=== PATIENT | male | born 1935 | race Caucasian/White ===

== ENCOUNTER 2020-07-27 08:12 | Emergency (ER) | payer OTHER, BC ==
[2020-07-27 10:18] LABS: Absolute Lymphocytes (CBC) 1.2 K/uL (0.7-4.9); Basophils % 0.2 % (0-1.3); Hematocrit 38.3 % (39.6-49.0); MPV 7.6 fL (7.6-11.3); RBC Red Blood Cell Count 3.98 M/uL (4.33-5.43)
[2020-07-27 10:24] LABS: Protime INR 0.98
[2020-07-27] MEDS ORDERED: CEFTRIAXONE/SWI 1gm 1 GM/10 ML SYR ONE (10:29)
[2020-07-27] MEDS ORDERED: NA CHLORIDE 0.9% 1,000 ML ONE (10:30)
[2020-07-27 10:36] LABS: Albumin 3.9 g/dL (3.4-5.0); Bilirubin Total 0.5 mg/dL (0.2-1.0); Potassium 4.3 mmol/L (3.5-5.1); Protein, Total 7.3 g/dL (6.4-8.2)
[2020-07-27 10:47] LABS: Urine Blood 3+ (Negative); Urine Glucose Negative (Negative); Urine Protein 2+ (Negative); Urine pH 7.5 (5.0-7.0)
--- NOTE | 2020-07-27 10:48 | RAD REPORT ---
EXAM DESCRIPTION: CT - Abdomen Pelvis W/Wo Contrast - 07/27/2020 10:32 am CLINICAL HISTORY: hematuria COMPARISON: 2013 TECHNIQUE: Computed axial tomography of the abdomen and pelvis was obtained. Unenhanced and enhanced images were taken. 100 cc Isovue 300 was administered intravenously. Images were obtained in arteria l, venous and delayed phases. Coronal reconstruction was performed. Oral contrast given All CT scans are performed using dose optimization technique as appropriate and may include automated exposure control or mA/KV adjustment according to patient size. FINDINGS: 5.7 centimeter cystic mass extends off of the lower pole of the right kidney. It has decre ased size from the prior exam in which measured 8.1 centimeters. It contains small peripheral calcifi cation. Additional smaller cyst right kidney. Mild bladder wall thickening No lymphadenopathy noted. Small hiatal hernia A genitourinary calculus is not seen. Hydronephrosis is not noted. The kidneys demonstrate symmetric and excretion of contrast. Prostatectomy with lymph node dissection. Small hepatic cyst. The Spleen, pancreas and adrenals appear unremarkable. There is no evidence diverticulitis. Multiple gallstones. IMPRESSION: Mild bladder wall thickening may indicate a mild cystitis Cholelithiasis. The gallbladder wall is not thickened.
--- NOTE | 2020-07-27 11:09 | EDPHYS ---
Physician Documentation [facility] Name: Alberto Suárez Jr Age: 84 yrs Sex: Male : 1935 Arrival Date: 07/27/2020 Time: 08:16 Bed 6 Private MD: ED Physician Baltazar Saucedo HPI: 07/27 09:47 This 84 yrs old Male presents to ER via Ambulatory with complaints of Urinary yves Problem - blood. 09:47 The patient presents with urinary symptoms, dysuria, hematuria this morning. Onset: The yves symptoms/episode began/occurred this morning. Modifying factors: The symptoms are alleviated by nothing. Associated signs and symptoms: The patient has no apparent associated signs or symptoms. Severity of symptoms: At their worst the symptoms were mild, moderate, in the emergency department the symptoms are unchanged. The patient has not experienced similar symptoms in the past. Historical: - Allergies: 08:46 No Known Allergies; aa5 - PMHx: 08:46 Prostate CA; Hypertension; aa5 - PSHx: 08:46 Prostate removed; Inguinal hernia; aa5 - Immunization history:: Adult Immunizations unknown. - Social history:: Smoking status: Patient denies any tobacco usage or history of. - Family history:: not pertinent. ROS: 09:47 Constitutional: Negative for fever, chills, and weight loss, Eyes: Negative for injury, yves pain, redness, and discharge, ENT: Negative for injury, pain, and discharge, Neck: Negative for injury, pain, and swelling, Cardiovascular: Negative for chest pain, palpitations, and edema, Respiratory: Negative for shortness of breath, cough, wheezing, and pleuritic chest pain, Abdomen/GI: Negative for abdominal pain, nausea, vomiting, diarrhea, and constipation, Back: Negative for injury and pain, : Negative for injury, bleeding, discharge, and swelling, MS/Extremity: Negative for injury and deformity, Skin: Negative for injury, rash, and discoloration, Neuro: Negative for headache, weakness, numbness, tingling, and seizure, Psych: Negative for depression, anxiety, suicide ideation, homicidal ideation, and hallucinations, Allergy/Immunology: Negative for hives, rash, and allergies, Endocrine: Negative for neck swelling, polydipsia, polyuria, polyphagia, and marked weight changes, Hematologic/Lymphatic: Negative for swollen nodes, abnormal bleeding, and unusual bruising. Exam: 09:47 Constitutional: This is a well developed, well nourished patient who is awake, alert, yves and in no acute distress. Head/Face: Normocephalic, atraumatic. Eyes: Pupils equal round and reactive to light, extra-ocular motions intact. Lids and lashes normal. Conjunctiva and sclera are non-icteric and not injected. Cornea within normal limits. Periorbital areas with no swelling, redness, or edema. ENT: Nares patent. No nasal discharge, no septal abnormalities noted. Tympanic membranes are normal and external auditory canals are clear. Oropharynx with no redness, swelling, or masses, exudates, or evidence of obstruction, uvula midline. Mucous membranes moist. Neck: Trachea midline, no thyromegaly or masses palpated, and no cervical lymphadenopathy. Supple, full range of motion without nuchal rigidity, or vertebral point tenderness. No Meningismus. Chest/axilla: Normal chest wall appearance and motion. Nontender with no deformity. No lesions are appreciated. Cardiovascular: Regular rate and rhythm with a normal S1 and S2. No gallops, murmurs, or rubs. Normal PMI, no JVD. No pulse deficits. Respiratory: Lungs have equal breath sounds bilaterally, clear to auscultation and percussion. No rales, rhonchi or wheezes noted. No increased work of breathing, no retractions or nasal flaring. Abdomen/GI: Soft, non-tender, with normal bowel sounds. No distension or tympany. No guarding or rebound. No evidence of tenderness throughout. Back: No spinal tenderness. No costovertebral tenderness. Full range of motion. Skin: Warm, dry with normal turgor. Normal color with no rashes, no lesions, and no evidence of cellulitis. MS/ Extremity: Pulses equal, no cyanosis. Neurovascular intact. Full, normal range of motion. Neuro: Awake and alert, GCS 15, oriented to person, place, time, and situation. Cranial nerves II-XII grossly intact. Motor strength 5/5 in all extremities. Sensory grossly intact. Cerebellar exam normal. Normal gait. Psych: Awake, alert, with orientation to person, place and time. Behavior, mood, and affect are within normal limits. 09:47 : CVA tenderness, is absent, Male external genitalia: normal, no abrasion, no discharge, no erythema, no injury, no swelling, no tenderness, no evidence of ulceration, Bladder: is normal. 09:49 : Bladder: is normal, non-distended, non-tender. [facility] Vital Signs: 08:36 BP 151 / 75; Pulse 67; Resp 18; Temp 97.8; Pulse Ox 97% on R/A; Weight 72.57 kg; Height em1 5 ft. 9 in. (175.26 cm); Pain 5/10; 12:21 BP 165 / 75; Pulse 63; Resp 17; Pulse Ox 97% on R/A; ll1 08:36 Body Mass Index 23.63 (72.57 kg, 175.26 cm) em1 MDM: 08:34 Patient medically screened. [facility] 09:50 Differential diagnosis: nonspecific abdominal pain, UTI, urinary retention, urethritis. [facility] Data reviewed: vital signs, nurses notes. 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 Counseling: I had a detailed discussion with the patient and/or guardian regarding: the historical points, exam findings, and any diagnostic results supporting the discharge/admit diagnosis, lab results, radiology results. 07/27 09:45 Order name: CBC with Diff [facility] 07/27 09:45 Order name: Comprehensive Metabolic Panel [facility] 07/27 09:45 Order name: Urine Culture [facility] 07/27 09:45 Order name: PT-INR; Complete Time: 10:36 [facility] 07/27 09:45 Order name: CBC with Automated Diff; Complete Time: 10:36 [facility] 07/27 09:45 Order name: Comprehensive Metabolic Panel; Complete Time: 11:07 [facility] 07/27 09:45 Order name: Urine Dipstick-Ancillary (obtain specimen); Complete Time: 10:38 [facility] 07/27 09:46 Order name: Bladder Scanner: note pvr; Complete Time: 10:39 [facility] 07/27 09:47 Order name: Abdomen ; Complete Time: 11:07 [facility] 07/27 10:33 Order name: CREATININE WHOLE BLOOD; Complete Time: 10:36 [facility] 07/27 10:47 Order name: Urine Dipstick-Ancillary; Complete Time: 11:07 EDPR Administered Medications: 10:37 Drug: NS 0.9% 1000 ml Route: IV; Rate: 1 bolus; Site: right antecubital; ll1 12:23 Follow up: Response: No adverse reaction; RASS: Alert and Calm (0); IV Status: ll1 Completed infusion; IV Intake: 1000ml 10:37 Drug: Rocephin (cefTRIAXone) 1 grams Route: IV; Rate: per protocol; Site: right ll1 antecubital; 12:24 Follow up: Response: No adverse reaction; RASS: Alert and Calm (0); IV Status: ll1 Completed infusion; IV Intake: 10ml Disposition: 07/27/20 11:09 Discharged to Home. Impression: Hematuria, Urinary tract infection, site not specified, Cystitis. - Condition is Stable. - Discharge Instructions: Dysuria, Hematuria, Adult, Urinary Tract Infection, Adult, Urinary Tract Infection, Adult, [id number]. - Prescriptions for Cipro 250 mg Oral Tablet - take 1 tablet by ORAL route every 12 hours; 20 tablet. Flomax 0.4 mg Oral Capsule, Sust. Release 24 hr - take 1 capsule by ORAL route once daily 1/2 hour following the same meal each day; 30 capsule. Bactrim DS 800- 160 mg Oral Tablet - take 1 tablet by ORAL route every 12 hours for 3 days; 6 tablet. - Medication Reconciliation Form, Thank You Letter, Antibiotic Education, Prescription Opioid Use form. - Follow up: Private Physician; When: 2 - 3 days; Reason: Recheck today's complaints, Continuance of care, Re-evaluation by your physician. Follow up: Rell Sterling; When: 2 - 3 days; Reason: Recheck today's complaints, Re-evaluation by your physician. - Problem is new. - Symptoms have improved. Signatures: Dispatcher [employer] [facility] Baltazar Saucedo MD MD cha Calderon, Audri, RN RN aa5 Donna Mnotano RN RN ll1 Corrections: (The following items were deleted from the chart) 09:47 09:45 Abdomen Pelvis W Con+CT.RAD.BRZ ordered. [facility] 12:25 11:09 07/27/2020 11:09 Discharged to Home. Impression: Hematuria; Urinary tract ll1 infection, site not specified; Cystitis. Condition is Stable. Discharge Instructions: Dysuria, Hematuria, Adult, Urinary Tract Infection, Adult, Urinary Tract Infection, Adult, [id number]. Prescriptions for Cipro 250 mg Oral Tablet - take 1 tablet by ORAL route every 12 hours; 20 tablet, Flomax 0.4 mg Oral Capsule, Sust. Release 24 hr - take 1 capsule by ORAL route once daily 1/2 hour following the same meal each day; 30 capsule, Bactrim DS 800-160 mg Oral Tablet - take 1 tablet by ORAL route every 12 hours for 3 days; 6 tablet. and Forms are Medication Reconciliation Form, Thank You Letter, Antibiotic Education, Prescription Opioid Use. Follow up: Private Physician; When: 2 - 3 days; Reason: Recheck today's complaints, Continuance of care, Re-evaluation by your physician. Follow up: Rell Sterling; When: 2 - 3 days; Reason: Recheck today's complaints, Re-evaluation by your physician. Problem is new. Symptoms have improved. yves
--- NOTE | 2020-07-27 11:09 | ER ---
Nurse's Notes [facility] Name: Alberto Suárez Jr Age: 84 yrs Sex: Male : 1935 Arrival Date: 07/27/2020 Time: 08:16 Bed 6 Private MD: Diagnosis: Hematuria;Urinary tract infection, site not specified;Cystitis Presentation: 07/27 08:28 Chief complaint: Patient states: hematuria that began this morning, pt reports aa5 abdominal cramping for a few days. Denies taking anticoagulants. 08:28 Method Of Arrival: Ambulatory aa5 08:28 Coronavirus screen: At this time, the client does not indicate any symptoms associated aa5 with coronavirus-19. Ebola Screen: Patient negative for fever greater than or equal to 101.5 degrees Fahrenheit, and additional compatible Ebola Virus Disease symptoms. Initial Sepsis Screen: Does the patient meet any 2 criteria? No. Patient's initial sepsis screen is negative. Does the patient have a suspected source of infection? No. Patient's initial sepsis screen is negative. Risk Assessment: Do you want to hurt yourself or someone else? Patient reports no desire to harm self or others. Onset of symptoms was July 27, 2020. 08:28 Acuity: JOSELYN 3 aa5 Historical: - Allergies: 08:46 No Known Allergies; aa5 - PMHx: 08:46 Prostate CA; Hypertension; aa5 - PSHx: 08:46 Prostate removed; Inguinal hernia; aa5 - Immunization history:: Adult Immunizations unknown. - Social history:: Smoking status: Patient denies any tobacco usage or history of. - Family history:: not pertinent. Screenin:45 Fall Risk IV access (20 points). Total Bishop Fall Scale indicates No Risk (0-24 pts). ll1 09:28 Abuse screen: Denies threats or abuse. Nutritional screening: No deficits noted. ll1 Tuberculosis screening: No symptoms or risk factors identified. Assessment: 08:45 General: Appears in no apparent distress. Behavior is calm, cooperative, appropriate ll1 for age. Pain: Complains of pain in abdomen Quality of pain is described as crampy, Is intermittent. Neuro: No deficits noted. Cardiovascular: No deficits noted. Respiratory: No deficits noted. GI: Abdomen is flat, Bowel sounds present X 4 quads. Abd is soft and non tender X 4 quads. Reports cramping. : Urine is adelina blood, Reports bloody urine today. Vital Signs: 08:36 BP 151 / 75; Pulse 67; Resp 18; Temp 97.8; Pulse Ox 97% on R/A; Weight 72.57 kg; Height em1 5 ft. 9 in. (175.26 cm); Pain 5/10; 12:21 BP 165 / 75; Pulse 63; Resp 17; Pulse Ox 97% on R/A; ll1 08:36 Body Mass Index 23.63 (72.57 kg, 175.26 cm) em1 ED Course: 08:16 Patient arrived in ED. as 08:31 Donna Montano, RN is Primary Nurse. ll1 08:31 Arm band placed on Patient placed in an exam room, on a stretcher. ll1 08:34 Baltazar Saucedo MD is Attending Physician. yves 08:45 Triage completed. aa5 09:28 Patient has correct armband on for positive identification. Bed in low position. Call ll1 light in reach. Side rails up X 1. 10:15 Inserted saline lock: 22 gauge in right antecubital area, using aseptic technique. ll1 Blood collected. 10:32 Abdomen In Process Unspecified. EDMS 11:03 Bladder scan completed. [address] Saucedo informed. ll1 11:09 Rell Sterling MD is Referral Physician. yves 12:22 No provider procedures requiring assistance completed. IV discontinued, intact, ll1 bleeding controlled, No redness/swelling at site. Pressure dressing applied. Administered Medications: 10:37 Drug: NS 0.9% 1000 ml Route: IV; Rate: 1 bolus; Site: right antecubital; ll1 12:23 Follow up: Response: No adverse reaction; RASS: Alert and Calm (0); IV Status: ll1 Completed infusion; IV Intake: 1000ml 10:37 Drug: Rocephin (cefTRIAXone) 1 grams Route: IV; Rate: per protocol; Site: right ll1 antecubital; 12:24 Follow up: Response: No adverse reaction; RASS: Alert and Calm (0); IV Status: ll1 Completed infusion; IV Intake: 10ml Intake: 12:23 IV: 1000ml; Total: 1000ml. ll1 12:24 IV: 10ml; Total: 1010ml. ll1 Outcome: 11:09 Discharge ordered by . yves 12:24 Discharged to home ambulatory. ll1 12:24 Condition: stable 12:24 Discharge instructions given to patient, Instructed on discharge instructions, follow up and referral plans. medication usage, Demonstrated understanding of instructions, follow-up care, medications, Prescriptions given X 3. 12:25 Patient left the ED. ll1 Addendum: 07/30/2020 07:55 Addendum: Culture Results: Positive urine culture. No further action required. Bacteria e b sensitive to prescribed antibiotic. Signatures: Dispatcher [employer] EDIA Baltazar Saucedo MD MD cha Martinez, Pino Felix em1 Stella Arreguin, RN RN aa5 Ángela Ramirez Lynsay, RN RN ll1
[2020-07-27 12:32] VITALS: TEMP 97.8; O2SAT 97
[2020-07-27 12:33] VITALS: BP 165/75
== END 2020-07-27 12:25 | disposition home or self-care (01) ==
LOC: ER 08:12
DX: N30.91 Cystitis, unspecified with hematuria (principal); I10 Essential (primary) hypertension; Z85.46 Personal history of malignant neoplasm of prostate
CPT/HCPCS: 87088; 85025; 87086; 36415; 85610; 82565; 81003; 80053; 74178; Q9967; J0696; J7030; 87077; 87186; 96365; 96366; 99284